=== PATIENT | male | born 1975 | race Caucasian/White ===

== ENCOUNTER 2021-03-25 18:35 | Emergency (ER) | payer OTHER ==
[~2021-03-25] VITALS: Ht 177.8 cm; Wt 86.2 kg
--- NOTE | ~2021-03-25 | EMS ---
[address] [address] EMS Patient Care Report Name: MIGUEL DALAL Room #: DEP LEORA Ahuja#: [id number] Admission: 03/25/21 Attend Phys: Discharge: 03/25/21 Date of : 77 Report #: [id number] THIS REPORT FOR: //name// Report Transmitted: 03/26/2021 06:21 EMS Care Summary [place], [place]/[facility] Incident [id number] @ 03/25/2021 17:42 Incident Location [address] [place] [address] Patient MIGUEL DALAL Male, 45 Years 1975 Patient Address HOMELESS Patient History Alcohol Abuse, Patient Allergies No known allergies, Patient Medications None Reported, Chief Complaint ETOH OVERDOSE Disposition Transported No Lights/[place] Reason Unknown Problem/Person Down Transported To [facility] Narrative M36 dispatched on an overdose. M36 arrived to scene to find PD on scene with PT seated on bench wearing only pants and shoes. PD stated they found PT rolling around on the ground at the bus stop. PT stated no chief complaint. PT unable to walk without assistance. PT found with empty liquor bottles on ground by [address] [address] EMS Patient Care Report Name: MIGUEL DALAL Room #: DEP Leigha#: [id number] Admission: 03/25/21 Attend Phys: Discharge: 03/25/21 Date of : 77 Report #: [id number] him. PT smells of ETOH and urine. PT initially refused ambulance transport. PT assisted to stand and pivot to stretcher. PT initially sat on stretcher with feet on head. PT assisted to rotate. PT secured with seatbelts. EMS attempted to place surgical mask on PT. PT ripped mask off. PT allowed EMS to Appended: take vital signs. PT took off blood pressure cuff. PT covered self in blanket and went to sleep. PT vitals taken during transport. PT report given. PT refused to answer questions. PT name and date of obtained from ER staff. PT moved to hospital bed via three person sheet lift. PT care and belongings transferred to ER staff at [facility] with delay from PT being uncooperative. M36 placed back in service. Initial Vitals @18:04P: 85,R: 18,BP: 166/94,Pain: 0/10,GCS: 13,Glucose: 85,SpO2: 98,Revised Trauma: 12, @18:08P: 82,R: 16,BP: 150/81,Pain: 0/10,GCS: 13,CO: 3,SpO2: 98,Revised Trauma: 12, Assessments @18:10MENTAL:Person Oriented,Confused,SKIN:Cold,Pale,HEENT:LUNG SOUNDS:ABDOMEN:PELVIS//GI:Incontinence,EXTREMITIES:PULSE:Radial: 2+ Normal,NEURO:Slurred Speech, Impression Overdose - Alcohol Procedures @18:10 ALS Assessment Response: UnchangedSucceeded Timeline 17:42,Call Received 17:42,Dispatch Notified 17:42,Dispatched 17:43,En Route 17:57,On Scene 17:58,At Patient 18:04,BP: 166/94 M,PULSE: 85,RR: 18 R,SPO2: 98 Ox,ETCO2: ,B,PAIN: 0,GCS: 13, 18:08,BP: 150/81 M,PULSE: 82,RR: 16 R,SPO2: 98 Ox,ETCO2: ,BG: ,PAIN: 0,GCS: 13, 18:10,Depart Scene 18:10,ALS Assessment,Response: UnchangedSucceeded, 18:19,At Destination 18:44,Call Closed [facility] [address] [place] [address] EMS Patient Care Report Name: MIGUEL DALAL Room #: DEP Leigha#: [id number] Admission: 03/25/21 Attend Phys: Discharge: 03/25/21 Date of : 77 Report #: [id number] Disclaimer [email or web address] Copyright 2021 [employer] This EMS Care Summary contains data elements from the applicable legal record (which may be displayed differently). It is designed to provide pertinent information for the following purposes: continuity of care, clinical quality, and state data reporting. The complete legal record is available to ED staff and administrators of the receiving hospital in [facility]'s Patient Tracker. All data is provided "as is."
[2021-03-25 19:20] LABS: ABSOLUTE NEUTROPHILS 5.9 thou/uL (1.4-8.2); BASOPHILS 1.9 % (0.0-2.0); EOSINOPHILS 2.6 % (0.0-3.0); HEMATOCRIT 47.3 % (42.0-52.0); HEMOGLOBIN 15.6 gm/dL (14.0-18.0); LYMPHOCYTES 28.1 % (24.0-44.0); MCH 30.7 pg (26.0-34.0); MCV 92.8 fL (80.0-100.0); MONOCYTES 7.3 % (1.0-8.0); PLATELET COUNT 357 thou/uL (150-400); POLYS 60.1 % (36.0-66.0); RDW 14.4 % (10.5-14.5); WBC 9.9 thou/uL (4.0-11.0)
[2021-03-25 19:28] LABS: ANION GAP 11 mmol/L (7-16); BUN 8 mg/dL (7-18); CALCIUM 8.7 mg/dL (8.5-10.1); CHLORIDE 112 mmol/L (98-107); CO2 28 mmol/L (21-32); CREATININE 0.6 mg/dL (0.7-1.3); GLUCOSE 89 mg/dL (74-106); POTASSIUM 3.6 mmol/L (3.5-5.1); SODIUM 151 mmol/L (136-145)
[2021-03-25 19:34] LABS: SALICYLATE 3.8 mg/dL (2.8-20.0); SGOT 116 U/L (15-37); SGPT 173 U/L (16-63); TOTAL BILIRUBIN 0.3 mg/dL (0.2-1.0); TOTAL PROTEIN 8.1 g/dL (6.4-8.2)
[2021-03-26 01:58] VITALS: BP 132/70
== END 2021-03-25 23:56 | disposition home or self-care (01) ==
LOC: EDBD 18:35 → ER 18:35
PROVIDERS: Nurse Practitioner
DX: F10.129 Alcohol abuse with intoxication, unspecified (principal); Y90.9 Presence of alcohol in blood, level not specified